=== PATIENT | female | born 2000 | race Hispanic/Latino ===

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

== ENCOUNTER 2023-02-21 18:12 | Emergency (ER) | payer OTHER ==
[~2023-02-21] VITALS: Ht 152.4 cm; Wt 54.4 kg
[2023-02-21 18:38] VITALS: O2SAT 100
[2023-02-21] MEDS ORDERED: CLINDAMYCIN HC300 MG PO (18:47)
[2023-02-21] MEDS ORDERED: KETOROLAC TROME10 MG PO (18:47)
== END 2023-02-21 18:45 | disposition home or self-care (01) ==
LOC: ER 18:29
DX: K08.89 Other specified disorders of teeth and supporting structures (principal)
CPT/HCPCS: 99282